=== PATIENT | female | born 1975 | race Caucasian/White ===

== ENCOUNTER 2016-03-12 15:46 | Emergency (ER) | payer OTHER, SELFPAY ==
[~2016-03-12 15:46] MED LIST: Sodium Chloride 0.9% 1,000 ML BAG ONE; Sodium Chloride Irrig Solution 250 ML BOT ONE
--- NOTE | 2016-03-12 18:36 | ERRECORD ---
[facility] EMERGENCY RECORD HPI VAGINAL BLEEDING (18:24 LLDO) CHIEF COMPLAINT: Patient presents for evaluation of vaginal bleeding, Patient presents for evaluation of this is day 2 of her usual 6 days of bleeding. see triage note. HISTORIAN: History provided by patient, Additional history obtained from police. LOCATION: Symptoms are localized. QUALITY: Bleeding quality described as dark blood, with clots, with tissue, Pain is dull in nature, described as aching. TIME COURSE: Patient unable to describe onset of symptoms, Symptoms are improving. ASSOCIATED WITH: No associated symptoms. EXACERBATED BY: Patient's condition exacerbated by nothing. RELIEVED BY: Patient's condition relieved by nothing. RISK FACTORS: No ectopic risk factors present. ROS CONSTITUTIONAL: Negative constitutional review of systems, pt used a rolled up pad as a tampon yesterday and now can't get it out. (18:27 LLDO) EYES: Negative eye review of systems, Historian denies eye pain, denies eye redness, denies eye discharge. (18:30 LLDO) ENT: Negative ears, nose, throat review of systems, Historian denies epistaxis, denies rhinorrhea, denies sinus pain, denies sore throat. (18:30 LLDO) GENITOURINARY FEMALE: IN HPI. (18:27 LLDO) MUSCULOSKELETAL: Negative musculoskeletal review of systems, Historian denies arthralgias, denies back pain, denies injury, denies myalgias, denies neck pain. (18:30 LLDO) SKIN: Negative skin review of systems, Historian denies cellulitis, denies rash, denies skin changes, denies skin lesions. (18:30 LLDO) NEUROLOGIC: Negative neurologic review of systems, Historian denies confusion, denies dizziness, denies focal weakness, denies mental status changes. (18:30 LLDO) HEMO/LYMPHATIC: Normal hematologic/lymphatic system review, Historian denies abnormal blood clotting, denies gum bleeding, denies petechiae. (18:30 LLDO) ALLERGIC/IMMUNOLOGIC: Normal allergy/immunologic system review, Historian denies eczema, denies environmental allergies, denies food allergies. (18:30 LLDO) PSYCHIATRIC: Negative psychiatric review of systems, Historian denies alcohol abuse, denies anxiety, denies depression, denies drug abuse, denies hallucinations. (18:30 LLDO) NOTES: All systems reviewed, negative except as described above. (18:27 LLDO) PAST MEDICAL HISTORY MEDICAL HISTORY: No past medical history, Flu vaccine not up to date, Tetanus not up to date, Pneumococcal &a-1R&a+25V*p+0X*x6563C*c202B*c15G*c2P*p-0X&a-25V&a+1R Name: Jaimie Huber : 1975 F40 MedRec: [id number] AcctNum: [id number] Prepared: [facility] Mar 12, 2016 18:40 by Interface Page 1 of 3 pMD [facility] EMERGENCY RECORD vaccine not up to date. (16:26 CJEF) FEMALE SURGICAL HISTORY: Surgical history of section, Notes: X2. (16:26 CJEF) PSYCHIATRIC HISTORY: No previous psychiatric history. (16:26 CJEF) SOCIAL HISTORY: Patient denies alcohol use, Patient denies drug use, Patient is a former tobacco user, smoked cigarettes, Tobacco history notes: HASNT HAD CIGARETTE IN X1 WEEK. (16:26 CJEF) NOTES: Nursing records reviewed, Agree with nursing records, Medication list reviewed. (18:30 LLDO) KNOWN ALLERGIES NKDA CURRENT MEDICATIONS (16:25 CJEF) None VITAL SIGNS VITAL SIGNS: Pulse: 74, Resp: 18, Temp: 97 (Tympanic), Pain: 0, O2 sat: 98 on Room Air, Time: 03/12/2016 16:22. (16:22 CJEF) BP: 108/66, Time: 03/12/2016 16:25. (16:25 CJEF) BP: 112/69, Pulse: 68, Resp: 18, O2 sat: 97 on Room Air, Time: 03/12/2016 17:14. (17:14 CJEF) BP: 105/61, Pulse: 75, Resp: 18, Pain: 0, O2 sat: 97 on Room Air, Time: 03/12/2016 18:10. (18:10 CJEF) Temp: 97.9 (Tympanic), Pain: 0, Time: 03/12/2016 18:28. (18:28 CJEF) PHYSICAL EXAM CONSTITUTIONAL: Vital Signs Reviewed, Patient afebrile, Pulse normal, Blood pressure normal, Respiratory rate normal, Normal pulse oximetry, Patient appears, uncomfortable, Patient appears, in moderate pain distress, Patient alert and oriented to person, place and time, Nursing notes reviewed. (18:28 LLDO) HEAD: Head exam normal, Head exam included findings of head atraumatic, normocephalic. (18:30 LLDO) EYES: Eye exam normal, Eye exam included findings of eyelids normal to inspection, Pupils equally round and reactive to light, Extraocular muscles intact. (18:30 LLDO) ENT: ENT exam normal, Ear exam normal, Nose exam normal. (18:30 LLDO) NECK: Neck exam normal, Neck exam included findings of normal range of motion, Trachea midline, no meningeal signs, no tenderness. (18:30 LLDO) GENITOURINARY FEMALE: Genitourinary exam included findings of external genitalia normal, vaginal mucosa normal, no discharge. (18:28 LLDO) PELVIC: Speculum exam abnormal, Foreign body noted, Active bleeding, Bimanual exam normal, Urethral &a-1R&a+25V*p+0X*k3100R*c202B*c15G*c2P*p-0X&a-25V&a+1R Name: Jaimie Huber : 1975 F40 MedRec: [id number] AcctNum: [id number] Prepared: Cortney Mar 12, 2016 18:40 by Interface Page 2 of 3 pMD [facility] EMERGENCY RECORD exam normal, Bladder exam normal, Exam findings include no complain of lower abdominal pain, no vaginal bleeding present, Escorted by sudarshan worthington rn. (18:28 LLDO) BACK: Back exam normal, Back exam included findings of normal inspection, range of motion normal. (18:30 LLDO) UPPER EXTREMITY: Upper extremity exam normal, Upper extremity exam included findings of inspection normal, Range of motion normal. (18:30 LLDO) LOWER EXTREMITY: Lower extremity exam normal, Lower extremity exam included findings of inspection normal, Range of motion normal. (18:30 LLDO) NEURO: Neuro exam normal, Neuro exam findings include patient oriented to person, place and time, Speech normal, [place]ie coma scale 15. (18:30 LLDO) SKIN: Skin exam normal, Skin exam included findings of skin warm, dry, and normal in color, no rash. (18:30 LLDO) PSYCHIATRIC: Psychiatric exam normal, Psychiatric exam included findings of patient oriented to person place and time, Normal affect. (18:30 LLDO) PROBLEM LIST No recorded problems DIAGNOSIS (18:22 LLDO) FINAL: PRIMARY: FOREIGN BODY VULVA VAGINA INIT ENC. PRESCRIPTION No recorded prescriptions DISPOSITION PATIENT: Disposition Type: Discharge, Disposition: Discharge to Senior Living. (18:22 LLDO) Patient left the department. (18:28 [facility]) [place]: LARON=POLO Adame, Kathia LLDO=MD Nick, Conner &a-1R&a+25V*p+0X*z8792Z*c202B*c15G*c2P*p-0X&a-25V&a+1R Name: Jaimie Huber : 1975 F40 MedRec: [id number] AcctNum: [id number] Prepared: Cortney Mar 12, 2016 18:40 by Interface Page 3 of 3 pMD MTDD
--- NOTE | 2016-03-12 18:42 | PICIS ---
[facility] EMERGENCY RECORD TRIAGE (16:24 CJEF) TRIAGE NOTES: PT REPORTS THAT SHE TOOK A HOMEMADE TAMPON OUT OF PADS AND STATES THATSHE IS UNABLE TO GET IT OUT NOW. PT REPORTS THAT EACH TIME SHE TRIES TO GET IT OUT, IT DISSINIGRATES. PT REPORTS THAT IT WAS PUT INTO VAGINA LAST NIGHT. (16:24 CJEF) PATIENT: NAME: Jaimie Huber, AGE: 40, GENDER: female, : Wed1975, TIME OF GREET: WedMar 12, 2016 15:47, ECODE BILLING MAP: [facility], Zip Code: [address], KG WEIGHT: 48.53, PHONE: , , , PERSON ID: [id number], PCP: NONE. (16:24 CJEF) COMPLAINT: FEMALE PROBLEM. (16:24 CJEF) ADMISSION: URGENCY: 4 Non Urgent, ADMISSION SOURCE: Half-Way/Correction, TRANSPORT: LAW ENFORCEMENT, BED: TRIAGE. (16:24 CJEF) ASSESSMENT: Assessment: HOME MADE TAMPON STUCK IN VAGINA. (16:26 CJEF) PAIN: No complaint of pain. (16:26 CJEF) IMMUNIZATIONS: Flu vaccine not up to date, Tetanus not up to date, Pneumococcal vaccine not up to date. (16:26 CJEF) SIRS SCORING: Heart Rate 55-109 (0), Temp range 96.8-101.1 (0), respiratory rate 12-24 (0), Mental Status altered: no (0), Infection or Suspected Infection: No. (16:26 CJEF) TRIAGE SCREENING: Patient denies suicidal ideation, Patient denies presence of domestic violence. (16:26 CJEF) LMP: Last menstrual period: 03/10/2016. (16:26 CJEF) PROVIDERS: TRIAGE NURSE: Kathia Adame RN. (16:24 CJEF) VITAL SIGNS: Pulse 74, Resp 18, Temp 97, (Tympanic), Pain 0, O2 Sat 98, on Room Air, Time 03/12/2016 16:22. (16:22 CJEF) BP 108/66, Time 03/12/2016 16:25. (16:25 CJEF) KNOWN ALLERGIES NKDA CURRENT MEDICATIONS (16:25 CJEF) None VITAL SIGNS VITAL SIGNS: Pulse: 74, Resp: 18, Temp: 97 (Tympanic), Pain: 0, O2 sat: 98 on Room Air, Time: 03/12/2016 16:22. (16:22 CJEF) BP: 108/66, Time: 03/12/2016 16:25. (16:25 CJEF) BP: 112/69, Pulse: 68, Resp: 18, O2 sat: 97 on Room Air, Time: 03/12/2016 17:14. (17:14 CJEF) BP: 105/61, Pulse: 75, Resp: 18, Pain: 0, O2 sat: 97 on Room Air, Time: 03/12/2016 18:10. (18:10 CJEF) Temp: 97.9 (Tympanic), Pain: 0, Time: 03/12/2016 18:28. (18:28 CJEF) NURSING ASSESSMENT: GENITOURINARY (16:26 CJEF) CONSTITUTIONAL: Complex assessment performed, Patient arrives ambulatory, Gait steady, History obtained from patient, Patient appears comfortable, Patient cooperative, Patient alert, Oriented to &a-1R&a+25V*p+0X*a1032M*c202B*c15G*c2P*p-0X&a-25V&a+1R Name: Jaimie Huber : 1975 F40 MedRec: [id number] AcctNum: [id number] Prepared: Cortney Mar 12, 2016 18:46 by Interface Page 1 of 5 pMD [facility] EMERGENCY RECORD person, place and time, Skin warm, Skin dry, Skin normal in color, Mucous membranes pink, Mucous membranes moist, Patient is well-groomed, PT REPORTS THAT SHE TOOK A HOMEMADE TAMPON OUT OF PADS AND STATES THATSHE IS UNABLE TO GET IT OUT NOW. PT REPORTS THAT EACH TIME SHE TRIES TO GET IT OUT, IT DISSINIGRATES. PT REPORTS THAT IT WAS PUT INTO VAGINA LAST NIGHT. PAIN FEMALE: Patient rates pain as 0 out of 10. GENITOURINARY FEMALE: Notes: FOREIGN BODY IN VAGINA. UNABLE TO PULL OUT HOME MADE TAMPON; MADE OUT OF PADS. 1 PAD USED. ABDOMEN: Abdomen assessment findings include abdomen symmetrical, Abdomen soft, non-tender, no associated nausea, no associated vomiting, no associated diarrhea, no associated constipation. NOTES: Patient tolerated procedure well. SAFETY: Side rails up, Cart/Stretcher in lowest position, Family at bedside, Call light within reach, Hospital ID band on. NURSING PROCEDURE: DISCHARGE NOTE (18:28 CJEF) DISCHARGE: Patient discharged in police custody, ambulating without assistance, transported via police, accompanied by law enforcement, Summary of Care printed/ provided, Patient requested and was provided an electronic copy of Discharge Instructions, Transition record given to patient, Discharge instructions given to patient, Simple or moderate discharge teaching performed, Above person(s) verbalized understanding of discharge instructions and follow-up care, Patient treated and evaluated by physician. BELONGINGS: Belongings remain with patient. NOTES: Patient tolerated procedure well. SAFETY: Side rails up, Cart/Stretcher in lowest position, Family at bedside, Call light within reach, Hospital ID band on. NURSING PROCEDURE: NURSE NOTES NURSES NOTES: Patient in no apparent distress, Patient resting quietly, Notes: PT RESTING IN BED QUIETLY WITH OFFICER AT BEDSIDE. NO DISTRESS NOTED. (17:14 CJEF) Notes: PT RESTING IN ROOM WITH NO DISTRESS NOTED. PT PREPARED FOR PELVIC EXAM. (18:09 CJEF) NURSING PROCEDURE: PELVIC EXAM (18:20 CJEF) PATIENT IDENTIFIER: Patient actively involved in identification process, Patient's identity verified by patient stating name, Patient's identity verified by patient stating date. PELVIC EXAM: Pelvic exam indicated for FOREIGN BODY, Notes: FOREIGN BODY REMOVED FROM VAGINAL USING AN ENEMA BAD AND 500ML OF NS AND FORCEPS. VAGINA IRRIGATED WITH THE ENEMA BAG. ALL PROCEDURES PERFORMED BY DR. ROMERO AND MYSELF BENEFITS CLERK. NOTES: Patient tolerated procedure well. SAFETY: Side rails up, Cart/Stretcher in lowest position, Family at bedside, Call light within reach, Hospital ID band on. HPI VAGINAL BLEEDING (18:24 LLDO) &a-1R&a+25V*p+0X*j1041K*c202B*c15G*c2P*p-0X&a-25V&a+1R Name: Jaimie Huber : 1975 F40 MedRec: [id number] AcctNum: [id number] Prepared: Cortney Mar 12, 2016 18:46 by Interface Page 2 of 5 pMD [facility] EMERGENCY RECORD CHIEF COMPLAINT: Patient presents for evaluation of vaginal bleeding, Patient presents for evaluation of this is day 2 of her usual 6 days of bleeding. see triage note. HISTORIAN: History provided by patient, Additional history obtained from police. LOCATION: Symptoms are localized. QUALITY: Bleeding quality described as dark blood, with clots, with tissue, Pain is dull in nature, described as aching. TIME COURSE: Patient unable to describe onset of symptoms, Symptoms are improving. ASSOCIATED WITH: No associated symptoms. EXACERBATED BY: Patient's condition exacerbated by nothing. RELIEVED BY: Patient's condition relieved by nothing. RISK FACTORS: No ectopic risk factors present. ROS CONSTITUTIONAL: Negative constitutional review of systems, pt used a rolled up pad as a tampon yesterday and now can't get it out. (18:27 LLDO) EYES: Negative eye review of systems, Historian denies eye pain, denies eye redness, denies eye discharge. (18:30 LLDO) ENT: Negative ears, nose, throat review of systems, Historian denies epistaxis, denies rhinorrhea, denies sinus pain, denies sore throat. (18:30 LLDO) GENITOURINARY FEMALE: IN HPI. (18:27 LLDO) MUSCULOSKELETAL: Negative musculoskeletal review of systems, Historian denies arthralgias, denies back pain, denies injury, denies myalgias, denies neck pain. (18:30 LLDO) SKIN: Negative skin review of systems, Historian denies cellulitis, denies rash, denies skin changes, denies skin lesions. (18:30 LLDO) NEUROLOGIC: Negative neurologic review of systems, Historian denies confusion, denies dizziness, denies focal weakness, denies mental status changes. (18:30 LLDO) HEMO/LYMPHATIC: Normal hematologic/lymphatic system review, Historian denies abnormal blood clotting, denies gum bleeding, denies petechiae. (18:30 LLDO) ALLERGIC/IMMUNOLOGIC: Normal allergy/immunologic system review, Historian denies eczema, denies environmental allergies, denies food allergies. (18:30 LLDO) PSYCHIATRIC: Negative psychiatric review of systems, Historian denies alcohol abuse, denies anxiety, denies depression, denies drug abuse, denies hallucinations. (18:30 LLDO) NOTES: All systems reviewed, negative except as described above. (18:27 LLDO) PAST MEDICAL HISTORY MEDICAL HISTORY: No past medical history, Flu vaccine not up to date, Tetanus not up to date, Pneumococcal vaccine not up to date. (16:26 CJEF) &a-1R&a+25V*p+0X*g4230G*c202B*c15G*c2P*p-0X&a-25V&a+1R Name: Jaimie Huber : 1975 F40 MedRec: [id number] AcctNum: [id number] Prepared: Cortney Mar 12, 2016 18:46 by Interface Page 3 of 5 pMD [facility] EMERGENCY RECORD FEMALE SURGICAL HISTORY: Surgical history of section, Notes: X2. (16:26 CJEF) PSYCHIATRIC HISTORY: No previous psychiatric history. (16:26 CJEF) SOCIAL HISTORY: Patient denies alcohol use, Patient denies drug use, Patient is a former tobacco user, smoked cigarettes, Tobacco history notes: HASNT HAD CIGARETTE IN X1 WEEK. (16:26 CJEF) NOTES: Nursing records reviewed, Agree with nursing records, Medication list reviewed. (18:30 LLDO) PHYSICAL EXAM CONSTITUTIONAL: Vital Signs Reviewed, Patient afebrile, Pulse normal, Blood pressure normal, Respiratory rate normal, Normal pulse oximetry, Patient appears, uncomfortable, Patient appears, in moderate pain distress, Patient alert and oriented to person, place and time, Nursing notes reviewed. (18:28 LLDO) HEAD: Head exam normal, Head exam included findings of head atraumatic, normocephalic. (18:30 LLDO) EYES: Eye exam normal, Eye exam included findings of eyelids normal to inspection, Pupils equally round and reactive to light, Extraocular muscles intact. (18:30 LLDO) ENT: ENT exam normal, Ear exam normal, Nose exam normal. (18:30 LLDO) NECK: Neck exam normal, Neck exam included findings of normal range of motion, Trachea midline, no meningeal signs, no tenderness. (18:30 LLDO) GENITOURINARY FEMALE: Genitourinary exam included findings of external genitalia normal, vaginal mucosa normal, no discharge. (18:28 LLDO) PELVIC: Speculum exam abnormal, Foreign body noted, Active bleeding, Bimanual exam normal, Urethral exam normal, Bladder exam normal, Exam findings include no complain of lower abdominal pain, no vaginal bleeding present, Escorted by sudarshan worthington rn. (18:28 LLDO) BACK: Back exam normal, Back exam included findings of normal inspection, range of motion normal. (18:30 LLDO) UPPER EXTREMITY: Upper extremity exam normal, Upper extremity exam included findings of inspection normal, Range of motion normal. (18:30 LLDO) LOWER EXTREMITY: Lower extremity exam normal, Lower extremity exam included findings of inspection normal, Range of motion normal. (18:30 LLDO) NEURO: Neuro exam normal, Neuro exam findings include patient oriented to person, place and time, Speech normal, [place] coma scale 15. (18:30 LLDO) SKIN: Skin exam normal, Skin exam included findings of skin warm, dry, and normal in color, no rash. (18:30 LLDO) PSYCHIATRIC: Psychiatric exam normal, Psychiatric exam included &a-1R&a+25V*p+0X*q1802Y*c202B*c15G*c2P*p-0X&a-25V&a+1R Name: Jaimie Huber : 1975 F40 MedRec: [id number] AcctNum: [id number] Prepared: WedMar 12, 2016 18:46 by Interface Page 4 of 5 pMD [facility] EMERGENCY RECORD findings of patient oriented to person place and time, Normal affect. (18:30 LLDO) EVENTS TRANSFER: Triage to Emergency Triage. (Cortney Mar 12, 2016 16:24 CJ) Emergency Triage to Waiting. (16:28 CJEF) Emergency Waiting to Main ED -04. (17:13 CJEF) Removed from Emergency Main ED -04. (18:28 CJEF) FOREIGN BODY (18:32 LLDO) FOREIGN BODY: Side and/or site verified, Patient identification confirmed, Sterile procedures observed, Verbal consent obtained, Foreign body removed from the vagina, Foreign body removed with forceps, Wound irrigated with sterile water, Wound left open, Bleeding controlled, Tetanus status up to date, Patient tolerated the procedure well, see HPI. PROBLEM LIST No recorded problems DIAGNOSIS (18:22 LLDO) FINAL: PRIMARY: FOREIGN BODY VULVA VAGINA INIT ENC. DISPOSITION PATIENT: Disposition Type: Discharge, Disposition: Discharge to Half-Way. (18:22 LLDO) Patient left the department. (18:28 CJEF) INSTRUCTION (18:24 LLDO) DISCHARGE: FOREIGN BODY VAGINAL ADULT. FOLLOWUP: Follow up with Primary Care Physician as needed. SPECIAL: Follow-up with your PCP. PRESCRIPTION No recorded prescriptions IMAGING (18:29 CJEF) *DISCHARGE INSTRUCTIONS RECEIPT: Image captured from scanner. ADMIN DIGITAL SIGNATURE: MD Romero Lloyd. (18:31 LLDO) MD Romero Lloyd. (18:34 LLDO) [place]: CJALEX=POLO Adame, Kathia LLDO=MD Romero Lloyd &a-1R&a+25V*p+0X*j0662I*c202B*c15G*c2P*p-0X&a-25V&a+1R Name: Jaimie Huber : 1975 10 MedRec: [id number] AcctNum: [id number] Prepared: WedMar 12, 2016 18:46 by Interface Page 5 of 5 pMD [facility] MEDICATION RECONCILIATION You were seen in the Emergency Department on: WedMar 12, 2016 KNOWN ALLERGIES NKDA HOME MEDICATIONS None Notes from the emergency department Reviewed with family Reviewed with patient &a-1R&a+25V*p+0X*m5828A*c202B*c15G*c2P*p-0X&a-25V&a+1R Name: Jaimie Huber : 1975 F40 MedRec: [id number] AcctNum: [id number] Prepared: WedMar 12, 2016 18:46 by Interface [facility]
== END 2016-03-12 18:29 | disposition home or self-care (01) ==
LOC: MADERS 15:46
DX: T19.2XXA Foreign body in vulva and vagina, initial encounter (principal)
CPT/HCPCS: 99284; J7050